=== PATIENT | male | born 1985 | race Caucasian/White ===

== ENCOUNTER 2017-03-13 22:05 | Emergency (ER) | payer OTHER ==
[2017-03-13] MEDS ORDERED: Adacel (T-DAP) 0.5 ML VIAL ONE (22:17)
[2017-03-13] MEDS ORDERED: Lidocaine 1% w/Epinephrine 1:200K 30 ML VIAL ONE (22:39)
[2017-03-13] MEDS ORDERED: Bacitracin Zinc 1 Packet ONE (23:39)
== END 2017-03-13 23:50 | disposition home or self-care (01) ==
LOC: ERS 22:05
DX: S61.214A Laceration without foreign body of right ring finger without damage to nail, initial encounter (principal); Z85.841 Personal history of malignant neoplasm of brain; W45.8XXA Other foreign body or object entering through skin, initial encounter
CPT/HCPCS: 12001; 90715